=== PATIENT | female | born 1990 | race African-American/Black ===

== ENCOUNTER 2021-12-25 05:40 | Emergency (ER) | payer MEDICAID ==
[~2021-12-25] VITALS: Ht 152.4 cm; Wt 85.2 kg
[2021-12-25 05:43] VITALS: BP 192/88
[2021-12-25] MEDS ORDERED: ONDANSETRON HCL 4MG/2ML INJ IV STA (06:07)
[2021-12-25] MEDS ORDERED: SODIUM CHLORIDE 0.9% 1,000 ML IV ONE (06:15)
== END 2021-12-25 09:22 | disposition home or self-care (01) ==
LOC: ER 05:40
DX: F10.129 Alcohol abuse with intoxication, unspecified (principal); Y90.8 Blood alcohol level of 240 mg/100 ml or more
CPT/HCPCS: 96361; 96374; 99283; J2405; J7030

== ENCOUNTER 2021-12-26 09:03 | Emergency (ER) | payer MEDICAID ==
[~2021-12-26] VITALS: Ht 167.6 cm; Wt 80.0 kg
[2021-12-26 09:07] VITALS: BP 140/92
== END 2021-12-26 13:25 | disposition left against medical advice (07) ==
LOC: ER 09:03
DX: F41.9 Anxiety disorder, unspecified (principal)
CPT/HCPCS: 81025; 99282